=== PATIENT | female | born 1950 | race Caucasian/White ===

== ENCOUNTER 2017-11-03 21:33 | Emergency (ER) | payer OTHER ==
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
[2017-11-03 22:14] VITALS: BP 116/69; RESP 16
[2017-11-03 23:48] VITALS: PULSE 87; TEMP 97.3; O2SAT 100
== END 2017-11-03 23:45 | disposition home or self-care (01) ==
LOC: EDUNIT#
PROC: 0HQ1XZZ Repair Face Skin, External Approach (ICD-10-PCS; principal; 2017-11-03)
DX: S09.90XA Unspecified injury of head, initial encounter (principal); S01.81XA Laceration without foreign body of other part of head, initial encounter; I10 Essential (primary) hypertension; W10.9XXA Fall (on) (from) unspecified stairs and steps, initial encounter; Y93.01 Activity, walking, marching and hiking

== ENCOUNTER 2018-12-20 14:31 | Emergency (ER) | payer OTHER ==
--- NOTE | 2018-12-20 15:28 | EDPHY ---
H & P Time Seen by Provider: 12/20/18 14:55 HPI/ROS: CHIEF COMPLAINT: Alcohol intoxication HISTORY OF PRESENT ILLNESS: Patient is a 68-year-old female presents emergency department after drinking alcohol earlier today. She states that she normally drinks 1 glass of alcohol regularly. Today she drank more alcohol normal. She denies any other ingestion. She has no trauma. She did not fall struck her head. She has no chest pain or shortness of breath. Patient denies any complaints at this time. REVIEW OF SYSTEMS: 10 systems were reveiwed and are negative with the exception of the elements mentioned in the history of present illness. Past Medical/Surgical History: Includes hypokalemia, hypertension, colon resection Smoking Status: Never smoked Physical Exam: Vitals noted GENERAL: Well-appearing, in no acute distress, alert. HEAD: No evidence of trauma. EYES: PERRLA, EOMI, normal to inspection. ENT: Airway intact, no dental or oral injury, no malocclusion, no hemotympanum , normal external examination. NECK: The trachea is midline. There is no crepitus. The C-spine is nontender. RESPIRATORY: [Clear to auscultation bilaterally, no rales, rhonchi or wheezing. Chest wall: Normal to appearance. No crepitance or deformity. CVS: Regular rate and rhythm, no rubs, murmurs, or gallops. ABDOMEN: Soft, nontender, nondistended, no bruising or abrasions. Pelvis: Stable. No tenderness palpation. BACK: Normal to inspection, no spinal tenderness, no spinal step off, no notable bruising or abrasions. SKIN: Normal color, warm, dry. No pallor or diaphoresis. EXTREMITIES: Atraumatic, neurovascularly intact distally in all extremities, hips with full range of motion, moves all extremities freely. NEURO/PSYCH: Alert and oriented x 3, GCS 15, intoxicated appearing, normal motor sensory exam. Constitutional: Initial Vital Signs Temperature (C) 36.6 C 12/20/18 14:37 Heart Rate 95 12/20/18 14:37 Respiratory Rate 16 12/20/18 14:37 Blood Pressure 129/91 H 12/20/18 14:37 O2 Sat (%) 92 12/20/18 14:37 O2 Delivery Mode Nasal Cannula Allergies/Adverse Reactions: No Known Allergies Allergy (Verified 11/03/17 22:05) Home Medications: Medication Instructions Recorded Atenolol 11/05/14 Herbals/Supplements -Info Only 11/03/17 Sertraline HCl 11/03/17 Medical Decision Making ED Course/Re-evaluation: In the emergency department I discussed possible etiologies with the patient. I answered all her questions. Because of her history of electrolyte abnormality , laboratory studies were ordered. CBC is unremarkable. Sodium is low at 134. The patient's alcohol level is 288. I discussed the results with the patient. I answered all her questions. 1835: Patient ambulated well in the emergency department. She has answer all my questions appropriately. Patient called her to come pick her up in the emergency department. She was able to ambulate in the department prior to discharge. Differential Diagnosis: My differential includes but is not limited to alcohol intoxication, electrolyte abnormality, sugar abnormality, trauma, subarachnoid hemorrhage, subdural hematoma, epidural hematoma - Data Points Laboratory Results: Laboratory Results 12/20/18 15:40 12/20/18 15:40 12/20/18 12/20/18 15:40 15:40 WBC 4.29 10^3/uL 10^3/uL (3.80-9.50) RBC 4.09 10^6/uL L 10^6/uL (4.18-5.33) Hgb 13.8 g/dL g/dL (12.6-16.3) Hct 40.0 % % (38.0-47.0) MCV 97.8 fL fL (81.5-99.8) MCH 33.7 pg pg (27.9-34.1) MCHC 34.5 g/dL g/dL (32.4-36.7) RDW 12.5 % % (11.5-15.2) Plt Count 181 10^3/uL 10^3/uL (150-400) MPV 9.0 fL fL (8.7-11.7) Neut % (Auto) 45.6 % % (39.3-74.2) Lymph % (Auto) 49.0 % H % (15.0-45.0) [facility] % (Auto) 4.4 % L % (4.5-13.0) Eos % (Auto) 0.0 % L % (0.6-7.6) Baso % (Auto) 0.5 % % (0.3-1.7) Nucleat RBC Rel Count 0.0 % % (0.0-0.2) Absolute Neuts (auto) 1.96 10^3/uL 10^3/uL (1.70-6.50) Absolute Lymphs (auto) 2.10 10^3/uL 10^3/uL (1.00-3.00) Absolute Monos (auto) 0.19 10^3/uL L 10^3/uL (0.30-0.80) Absolute Eos (auto) 0.00 10^3/uL L 10^3/uL (0.03-0.40) Absolute Basos (auto) 0.02 10^3/uL 10^3/uL (0.02-0.10) Absolute Nucleated RBC 0.00 10^3/uL 10^3/uL (0-0.01) Immature Gran % 0.5 % % (0.0-1.1) Immature Gran # 0.02 10^3/uL 10^3/uL (0.00-0.10) Sodium 134 mEq/L L mEq/L (135-145) Potassium 4.4 mEq/L mEq/L (3.5-5.2) Chloride 100 mEq/L mEq/L (97-110) Carbon Dioxide 23 mEq/l mEq/l (22-31) Anion Gap 11 mEq/L mEq/L (6-14) BUN 10 mg/dL mg/dL (7-23) Creatinine 0.5 mg/dL L mg/dL (0.6-1.0) Estimated GFR > 60 Glucose 109 mg/dL H mg/dL (70-100) Calcium 9.0 mg/dL mg/dL (8.5-10.4) Ethyl Alcohol 288 mg/dL H mg/dL (0-10) Departure - Departure Disposition: Home, Routine, Self-Care Clinical Impression: Alcoholic intoxication Qualifiers: Complication of substance-induced condition: uncomplicated Qualified Code(s): F10.920 - Alcohol use, unspecified with intoxication, uncomplicated Condition: Good Instructions: Alcohol Intoxication (ED) Additional Instructions: Return with increasing headache, vomiting, fever or any other concerns. Referrals: Maryam Mancini MD [Medical Doctor] - 3-4 days, if not improved
[2018-12-20 15:57] LABS: PLATELET COUNT 181 10^3/uL (150-400)
[2018-12-20 19:19] VITALS: BP 133/91
== END 2018-12-20 19:16 | disposition home or self-care (01) ==
LOC: EDUNIT#
DX: F10.920 Alcohol use, unspecified with intoxication, uncomplicated (principal)
CPT/HCPCS: G0480